=== PATIENT | male | born 1965 | race Caucasian/White ===

== ENCOUNTER → 2020-01-03 08:22 | Outpatient (BNVA) | payer BC, SELFPAY | PROVIDERS: Family Provider Family Medicine; PCP Nurse Practitioner Family; Visit Provider Urology | DX: N39.9 Disorder of urinary system, unspecified (principal); N40.1 Benign prostatic hyperplasia with lower urinary tract symptoms; R35.0 Frequency of micturition; N52.9 Male erectile dysfunction, unspecified | CPT/HCPCS: 81001 ==

== ENCOUNTER 2021-01-20 12:49 | Outpatient (CLI) | payer BC, SELFPAY ==
--- NOTE | 2021-01-20 12:57 | XRR_ITS ---
PROCEDURE INFORMATION: Exam: XR Chest Exam date and time: 01/20/2021 1:02 PM Age: 55 years old Clinical indication: Condition or disease; Lung condition and disease; Other: Asthmatic bronchitis; Cough; Additional info: Asthmatic bronchitis/cough TECHNIQUE: Imaging protocol: XR of the chest Views: 2 views. COMPARISON: CR Chest 1 [place] [id number] 05/13/2017 12:56 PM FINDINGS: Lungs: Unremarkable. No consolidation. Pleural spaces: Unremarkable. No pleural effusion. No pneumothorax. Heart/Mediastinum: Unremarkable. No cardiomegaly. Bones/joints: Unremarkable. XR/XR chest 2V* [id number] IMPRESSION: No acute findings.
== END 2021-01-20 12:50 | disposition home or self-care (01) ==
LOC: RAD 12:51
PROVIDERS: PCP Nurse Practitioner Family; Visit Provider Nurse Practitioner Family
DX: R05 Cough (principal); J45.909 Unspecified asthma, uncomplicated
CPT/HCPCS: 71046

== ENCOUNTER → 2021-05-19 08:36 | Outpatient (BNVA) | payer BC, SELFPAY | PROVIDERS: PCP Nurse Practitioner Family; Referring Provider Anesthesiology Pain Medicine; Visit Provider Orthopaedic Surgery | DX: M54.2 Cervicalgia (principal) | CPT/HCPCS: 72050 ==

== ENCOUNTER 2021-05-29 11:18 | Outpatient (CLI) | payer BC, SELFPAY ==
--- NOTE | 2021-05-29 11:25 | XR_ITS ---
WS: [id number] RIGHT SHOULDER: 2 VIEW(S) TECHNIQUE: Internal and external rotation. HISTORY: R SHOULDER PAIN COMPARISON: None available. Moderate narrowing of the AC joint. Small osteophytes with subchondral cystic changes along the joint line. Mild narrowing of the glenohumeral joint. No fractures. Visualized RIGHT lung is clear. XR/XR shoulder RT min 2V* [id number] IMPRESSION: 1. Moderate AC joint arthritis. 2. Very mild glenohumeral joint narrowing.
== END 2021-05-29 11:19 | disposition home or self-care (01) ==
PROVIDERS: PCP Nurse Practitioner Family; Visit Provider Nurse Practitioner Family
DX: M13.811 Other specified arthritis, right shoulder (principal)
CPT/HCPCS: 73030

== ENCOUNTER 2021-07-07 06:58 | Outpatient (CLI) | payer BC, SELFPAY ==
--- NOTE | 2021-07-07 07:15 | MR_ITS ---
WS: [id number] MRI RIGHT SHOULDER HISTORY: M75.01 - Adhesive capsulitis of right shoulder COMPARISON: 05/29/2021 TECHNIQUE: Multiplanar sequences of the shoulder joint are submitted. Moderate AC joint arthritis. Thickening of the capsule surrounding the AC joint with fluid along the articular surfaces and hypertrophic osteophytes encroaching upon the supraspinatus tendon and muscle. Moderate amount of fluid in the subacromial and subdeltoid bursa. 5 mm osteophyte from the distal un dersurface of the acromion with very mild encroachment upon the supraspinatus tendon superior to the humeral head. No os acromion. Biceps tendon is present at the bicipital groove. Mild narrowing of the glenohumeral joint. Loss of cartilage surrounding the humeral head and also the surface of the glenoid. No muscle atrophy or edema. Quality of this examination is limited by motion . There are no full-thickness rotator cuff tears. There is fraying and possible partial small tear in volving the distal articular surface of the supraspinatus. There is also mild tendinopathy in the dis justin 2 to 3 cm of the supraspinatus tendon. Increased fluid in the subscapularis recess. There is also increased T2 signal in the rotator cuff interval. Marked thickening and loss of the normal contour o f the coracohumeral ligament. Coracohumeral ligament measures 5 mm which is enlarged. Loss of the nor mal contour of the ligament and the ligament is very indistinct due to the edema. Abnormal signal in the superior labrum irregular signal consistent with a labral tear. MR/MR shoulder RT wo con* [id number] IMPRESSION: 1. Marked increased signal in the rotator cuff interval with thickening of the coracohumeral ligament and edema. Findings are consistent with adhesive capsul itis. 2. Moderate increase fluid in the subacromial/subdeltoid bursa and also extend ing into the subscapularis recess. 3. Moderate AC joint and glenohumeral joint osteoarthritis with joint space na rrowing and osteophytes. 4. No full-thickness rotator cuff tear is identified. Persistent motion throug hout the examination. Indeterminate but suspicious for very small articular maria luisa face tear of the distal supraspinatus.
== END 2021-07-07 06:59 | disposition home or self-care (01) ==
LOC: RADSHAW 07:01
PROVIDERS: PCP Nurse Practitioner Family; Visit Provider Specialist
DX: M75.01 Adhesive capsulitis of right shoulder (principal); M19.011 Primary osteoarthritis, right shoulder
CPT/HCPCS: 73221

== ENCOUNTER → 2021-12-10 08:04 | Outpatient (BNVA) | payer BC, SELFPAY | PROVIDERS: PCP Nurse Practitioner Family; Visit Provider Orthopaedic Surgery | DX: M48.02 Spinal stenosis, cervical region (principal) | CPT/HCPCS: 72050 ==

== ENCOUNTER 2022-01-07 07:07 | Outpatient (CLI) | payer BC, SELFPAY ==
--- NOTE | 2022-01-07 07:15 | MR_ITS ---
WS: [id number] MRI CERVICAL SPINE NONCONTRAST TECHNIQUE: Sagittal T1, T2 and STIR imaging. Axial T2, gradient, and fiesta imaging. CLINICAL INFORMATION: M48.02 - Spinal stenosis, cervical region COMPARISON: MRI January 24, 2019 FINDINGS: Straightening of the normal cervical lordosis. Cord signal is normal. Mild central canal stenosis in the mid cervical spine at C4-C6. C2-C3: Normal. C3-C4: Mild disc osteophytic ridging. Mild LEFT and no significant RIGHT foraminal narrowing. Mild fa cet arthropathy. Spinal canal is patent. C4-C5: Disc osteophyte complex with endplate ridging. Mild central canal stenosis. Tiny central disc osteophyte protrusion. Moderate LEFT and mild RIGHT bony foraminal narrowing. Mild facet arthropathy. C5-C6: Disc osteophyte complex with endplate ridging. Mild central canal stenosis with slight contact of the cervical cord. Central disc osteophyte protrusion. Moderate LEFT and mild RIGHT foraminal carla rowing. Moderate facet arthropathy. C6-C7: Disc osteophyte complex with endplate ridging. Mild LEFT foraminal narrowing. Moderate facet a rthropathy. Mild central canal stenosis. C7-T1: Slight anterolisthesis C7 on T1. Mild to moderate LEFT facet arthropathy. Spinal canal and for amen are patent. Mild annular bulging T1-T2 in the upper thoracic spine. Visualized brain stem structures: Normal. Prevertebral soft tissues: Normal. Overall no significant changes since January 24, 2019 MR/MR cervical spin wo con* [id number] IMPRESSION: 1. Straightening of the normal cervical lordosis. Cord signal is normal. 2. Mild central canal stenosis C4-C5 C5-C6 and C6-C7 due to mild disc bulging with tiny disc osteophyte protrusions and slight contact of the cervical cord. 3. Mild to moderate bony foraminal narrowing worse at LEFT C4-C5, bilateral C5 -C6 worse in the LEFT, LEFT C6-C7. 4. Mild to moderate facet arthropathy C4-C6 and LEFT C7-T1.
== END 2022-01-07 07:08 | disposition home or self-care (01) ==
LOC: RAD 07:10
PROVIDERS: PCP Nurse Practitioner Family; Visit Provider Orthopaedic Surgery
DX: M48.02 Spinal stenosis, cervical region (principal); M47.812 Spondylosis without myelopathy or radiculopathy, cervical region; M47.813 Spondylosis without myelopathy or radiculopathy, cervicothoracic region
CPT/HCPCS: 72141

== ENCOUNTER 2022-02-09 17:12 | Emergency (ER) | payer OTHER, BC, SELFPAY ==
[2022-02-09 17:18] VITALS: BP 142/87; PULSE 87; RESP 18; TEMP 36.8; O2SAT 97; BMI 33.4
--- NOTE | 2022-02-09 17:57 | XRR_ITS ---
PROCEDURE INFORMATION: Exam: XR Left Hip Exam date and time: 02/09/2022 6:02 PM Age: 56 years old Clinical indication: Hip pain; Left hip TECHNIQUE: Imaging protocol: XR Left hip. Views: 2 or 3 views hip with pelvis when performed. COMPARISON: CT abdomen pelvis w con* [id number] 08/05/2015 1:21 PM FINDINGS: Bones/joints: Unremarkable. No acute fracture. Soft tissues: Unremarkable. XR/XR hip LT 2-3V wo/w pel* [id number] IMPRESSION: No acute findings.
--- NOTE | 2022-02-09 17:57 | XRR_ITS ---
PROCEDURE INFORMATION: Exam: XR Lumbosacral Spine Exam date and time: 02/09/2022 6:02 PM Age: 56 years old Clinical indication: Low back pain TECHNIQUE: Imaging protocol: XR of the lumbosacral spine. Views: 2 or 3 views. COMPARISON: [facility] Lumbar Spine 5 views 07/15/2017 9:27 AM FINDINGS: Bones/joints: The vertebral body stature is intact. Minimal rightward lumbar curvature. Mild degenerative endplate changes at all lumbar levels. The facets are intact. Stable mild disc space narrowing at L5-S1. The other disc spaces are maintained. Soft tissues: Unremarkable. XR/XR lumbar spine 2-3V* [id number] IMPRESSION: 1. Stable mild degenerative changes. 2. No fracture or acute finding.
[2022-02-09 18:00] VITALS: BP 111/62; PULSE 78; RESP 14; O2SAT 95
--- NOTE | 2022-02-09 18:18 | W.ED.BACK ---
HPI - Back Pain/Injury General: Chief Complaint: Back Pain/Injury Stated Complaint: Fell at work, unable walk without pain Time Seen by Provider: 02/09/22 17:14 PFSH ED PFSH: Medical History BPH (benign prostatic hyperplasia) Erectile dysfunction Family History Grandmother Diabetes Father , at age 68 Cancer throat Social History Smoking and tobacco status: former smoker Alcohol intake: never Marital status: Current occupational status: employed History of recent travel: No Course Vital Signs: Vital signs: Vital Signs Temperature 98.2 F 02/09/22 17:18 Pulse Rate 78 02/09/22 18:00 Respiratory Rate 14 02/09/22 18:00 Blood Pressure 111/62 02/09/22 18:00 Pulse Oximetry 95 02/09/22 18:00 Discharge Plan Discharge Condition: Stable Prescriptions: No Action tramadol 50 mg tablet 50 mg PO TID PRN0RF gabapentin 800 mg tablet 800 mg PO TID 0RF omega-3 fatty acids [Fish Oil Concentrate] 1,000 mg capsule 1,000 mg PO DAILY 0RF vitamin B complex [B Complex-Vitamin B12] Tablet 1 tab PO DAILY 0RF cholecalciferol (vitamin D3) 25 mcg (1,000 unit) capsule 1,000 unit PO DAILY 0RF fenugreek seed extract 500 mg capsule PO DAILY 0RF multivitamin Tablet 1 tab PO DAILY 0RF tamsulosin 0.4 mg capsule 0.4 mg PO DAILY 0RF pantoprazole 40 mg tablet,delayed release (DR/EC) 40 mg PO DAILY 0RF acetaminophen-codeine 300-60 mg tablet 1 tab PO BID 0RF Referrals: Deborah Solis APN [Primary Care Provider] - Coding Level of Care Code ED Assistant Professor Of [employer] for Gabe Mckeon
--- NOTE | 2022-02-09 18:24 | ED_ITS ---
HPI - General Adult General: Chief complaint: Back Pain/Injury Stated complaint: Fell at work, unable walk without pain Time Seen by Provider: 02/09/22 17:14 History of Present Illness: Patient is a 56-year-old male with a history of chronic back pain presenting to the emergency room with complaints of acute left hip and lower back pain. 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 Patient ignored the pain at the time continue to work. Patient since then has been able to go home. Shortly after patient took a nap, he is complaining significant left hip and lower back pain. Patient has not been to bear weight because of pain. Patient denies any other injury or pain elsewhere. Onset: 4am Duration:ongoing Location:home Severity:moderate Associated symptoms: Deny chest pain, dyspnea, nausea, rash, palpitations or vomiting Review of Systems Const: Denies: fever(s) or chills Eyes: Denies: change in vision ENMT: Denies: mouth pain Card: Denies: chest pain or palpitations Resp: Denies: dyspnea or non-productive cough GI: Denies: abdominal pain, nausea, vomiting or diarrhea : Denies: dysuria Musc: Reports: back pain (+lower lumbar back pain) and extremity pain (+l hip pain) Skin/Breast: Denies: rash or new lesions Neuro: Denies: weakness in extremities Psych: Reports: other (Normal mood) Zane/Lymph: Denies: easy bruising PFSH ED PFSH: Medical History BPH (benign prostatic hyperplasia) Erectile dysfunction Family History Grandmother Diabetes Father , at age 68 Cancer throat Social History Smoking and tobacco status: former smoker Alcohol intake: never Marital status: Current occupational status: employed History of recent travel: No Physical Exam Const: COMMON NORMALS: alert HENMT: COMMON NORMALS: atraumatic HEAD & SCALP: atraumatic MOUTH: moist mucous membranes not abnormal Eye: COMMON NORMALS: EOMs intact bilaterally and conjunctivae normal CONJUNCTIVA: Yes conjunctivae normal Neck/C-Spine: COMMON NORMALS: full ROM and supple Resp: COMMON NORMALS: normal respiratory effort and clear to auscultation bilaterally AUSCULTATION: clear to auscultation bilaterally Cardio: COMMON NORMALS: regular rate RATE: regular rate GI: COMMON NORMALS: Soft to palpation and non-tender PALPATION: Yes Soft to palpation Extremity: COMMON NORMALS: full ROM OTHER: +Decreased rOM of the L hip intact, neurovascular exam of the LE intact Neuro: SENSORIUM/ORIENTATION: Yes alert MOTOR EXAM: No Abnormal motor stre ngth present and Other motor observations present (no focal motor deficits) Psych: COMMON NORMALS: speech normal SPEECH: Yes normal speech MOOD & AFFECT: Yes euthymic mood Procedures Nerve Block Nerve Block 1: Time out performed: Yes Local Anesthetic: lidocaine 1% and bupivacaine 0.5% Amount of anesthesia used (mL): 10 Nerve Blocks: other (+trigger point injections) Procedure Successful: Yes Patient Tolerated Procedure: well Complications: none Additional Comments: Risks of procedures in infection, nerve injury, hematoma, and bleeding discussed extensively with patient and alternatives of medical management discussed in detail. Patient elects for the procedure. Trigger point injections of the L glutes - one jaret were appreciated on palpitation. Surface cleaned extensively with isopropyl alcohol and chlorohexadine, sterile 7-0 gloves used. 40mg of kenalog mixed 5 cc of lidocaine 1% w/o epi and 5cc of 0.5% bupivcane w/ epi were injected into the sites of pain and pressure. Course Vital Signs: Vital signs: Vital Signs Temperature 98.2 F 02/09/22 17:18 Pulse Rate 72 02/09/22 20:33 Respiratory Rate 16 02/09/22 20:33 Blood Pressure 123/72 02/09/22 20:33 Pulse Oximetry 97 02/09/22 20:33 [facility] - General Adult Medical Decision Making Patient is a 56-year-old male states emergency with complaints of left hip and lower back pain. Patient has decreased range of motion of left hip due to pain. X-rays negative for any acute findings of injuries. She has multiple palpable knots around lateral and posterior muscles includes. Patient received multiple trigger point injections. Please refer to the procedure note. After the injection patient reports symptomatic improvement but still reports mild amount of pain in the L hip. I have given patient follow up with our protective services case worker to be seen by our outpatient Orthopedics for reassessment of symptoms today and possible outpatient MRI. Patient aware of a call from our protective services case worker to schedule for appointment(s) and verbalizes understanding of the importance of following up. I have instructed patient to follow-up to repeat x-ray in 1 week ensure if patient is still having pain. Patient received crutches to go home with. Rx: norflex, tylenol, lidocaine patch, and menthol PRN pain Disposition: Discharge. Patient counseled regarding diagnostic impression, treatment plan. Patient given ED strict return precautions to return for continuation, worsening, or development of new symptoms. Instructed to f/u w/ PCP regarding symptoms today. Patient verbalized understanding. Lab Data Radiology Impressions Hip/Pelvis X-Ray 02/09/22 17:57 IMPRESSION: No acute findings. Lumbar Spine X-Ray 02/09/22 17:57 IMPRESSION: 1. Stable mild degenerative changes. 2. No fracture or acute finding. Imaging Data Other Imaging: Radiologist's impression: [address] [address] XRay Report Signed Patient: Jose Figueroa Unit #: [id number] : 1965 Age/Sex: 56 / M ADM Date: 02/09/22 Loc: ER Room/Bed: Attending Dr: Ordering Provider/Ordering MD: Shaq Treadwell MD Date of Service: 02/09/22 Procedure(s): XR lumbar spine 2-3V* [id number] Accession Number(s): [id number] Report Number: [id number] PROCEDURE INFORMATION: Exam: XR Lumbosacral Spine Exam date and time: 02/09/2022 6:02 PM Age: 56 years old Clinical indication: Low back pain TECHNIQUE: Imaging protocol: XR of the lumbosacral spine. Views: 2 or 3 views. COMPARISON: [facility] Lumbar Spine 5 views 07/15/2017 9:27 AM FINDINGS: Bones/joints: The vertebral body stature is intact. Minimal rightward lumbar curvature. Mild degenerative endplate changes at all lumbar levels. The facets are intact. Stable mild disc space narrowing at L5-S1. The other disc spaces are maintained. Soft tissues: Unremarkable. XR/XR lumbar spine 2-3V* [id number] IMPRESSION: 1. Stable mild degenerative changes. 2. No fracture or acute finding.? ? Dictated By: Olivier Santizo Signed By: Olivier Santizo Signed Date/Time: 02/09/221921 DD/ [address] [address] XRay Report Signed Patient: Jose Figueroa Unit #: [id number] : 1965 Age/Sex: 56 / M ADM Date: 02/09/22 Loc: ER Room/Bed: Attending Dr: Ordering Provider/Ordering MD: Shaq Treadwell MD Date of Service: 02/09/22 Procedure(s): XR hip LT 2-3V wo/w pel* [id number] Accession Number(s): [id number] Report Number: [id number] PROCEDURE INFORMATION: Exam: XR Left Hip Exam date and time: 02/09/2022 6:02 PM Age: 56 years old Clinical indication: Hip pain; Left hip TECHNIQUE: Imaging protocol: XR Left hip. Views: 2 or 3 views hip with pelvis when performed. COMPARISON: CT abdomen pelvis w con* [id number] 08/05/2015 1:21 PM FINDINGS: Bones/joints: Unremarkable. No acute fracture. Soft tissues: Unremarkable. XR/XR hip LT 2-3V wo/w pel* [id number] IMPRESSION: No acute findings. ? Dictated By: Olivier Santizo Signed By: Olivier Santizo Signed Date/Time: 02/09/221922 DD/ 01 Discharge Plan Discharge Patient Disposition: Home Clinical Impression: Hip pain, Back pain Condition: Stable Prescriptions: New acetaminophen 500 mg tablet 500 mg PO Q6H PRN (Reason: pain) 5 Days Qty: 20 0RF lidocaine 5 % adhesive patch,medicated 1 patch topical DAILY PRN (Reason: pain) 30 Days Qty: 30 0RF Rx Instructions: leave on most painful area for up to 12 hrs orphenadrine citrate 100 mg tablet extended release 100 mg PO BID 10 Days Qty: 20 0RF Biofreeze (menthol) 5 % gel 1 ea topical BID PRN (Reason: pain) 10 Days Qty: 1 0RF No Action tramadol 50 mg tablet 50 mg PO TID PRN0RF gabapentin 800 mg tablet 800 mg PO TID 0RF omega-3 fatty acids [Fish Oil Concentrate] 1,000 mg capsule 1,000 mg PO DAILY 0RF vitamin B complex [B Complex-Vitamin B12] Tablet 1 tab PO DAILY 0RF cholecalciferol (vitamin D3) 25 mcg (1,000 unit) capsule 1,000 unit PO DAILY 0RF fenugreek seed extract 500 mg capsule PO DAILY 0RF multivitamin Tablet 1 tab PO DAILY 0RF tamsulosin 0.4 mg capsule 0.4 mg PO DAILY 0RF pantoprazole 40 mg tablet,delayed release (DR/EC) 40 mg PO DAILY 0RF acetaminophen-codeine 300-60 mg tablet 1 tab PO BID 0RF Discharge Orders: Discharge ED (Routine); Ordered 02/09/22 Ordered By: Shaq Treadwell Referrals: Deborah Solis APN [Primary Care Provider] - Discharge Diet: Advance as tolerated Discharge Activity: Increase activity as tolerated Patient Instructions: Back Pain (ED) Activity Restrictions/Additional Instructions: Please come back to the emergency room to have worsening back pain, if have any problem with urination and bowel movementm if you have any weakness in the legs, numbness in the legs, or if you have any new or concerning complaints. Coding Level of Care Code ED Pot Pusher for Gabe Fwd Exam Comprehensive
[2022-02-09 18:46] VITALS: RESP 14; O2SAT 95
[2022-02-09] MEDS: morphine 4 mg/mL SDV 1 mL IM (18:46)
[2022-02-09] MEDS: lidocaine 5% Patch 1 PATCH TOPICAL (18:46)
[2022-02-09] MEDS: acetaminophen 500 mg Tablet PO (18:46)
[2022-02-09 18:48] VITALS: BP 119/67; PULSE 69; RESP 14; O2SAT 95
[2022-02-09] MEDS: triamcinolone 40 mg/mL SDV IM (20:30)
[2022-02-09 20:32] VITALS: BP 123/72; PULSE 72; RESP 16; O2SAT 97
[2022-02-09 20:33] VITALS: BP 123/72; PULSE 72; RESP 16; O2SAT 97
--- NOTE | 2022-02-10 10:57 | DCPLANNER ---
Addendum entered by Chioma Hobbs 02/24/22 19:17: Patient had a follow up appointment scheduled with Dr. Mendez at ortho - patient did attend appointment. Addendum entered by Chioma Hobbs 02/11/22 07:51: Patient has a follow up appointment scheduled for 2021 at 9:[address] Mendez at ortho. Clinic will call patient with appointment information. Original Note: regional environmental manager had message to schedule a follow up appointment for patient with ortho. regional environmental manager sent patients information to the front staff at ortho. Patients information will be printed and reviewed. Clinic will call patient with appointment information.
== END 2022-02-09 20:35 | disposition home or self-care (01) ==
PROVIDERS: Emergency Provider Emergency Medicine; PCP Nurse Practitioner Family
DX: M25.552 Pain in left hip (principal); M54.50 Low back pain, unspecified
CPT/HCPCS: 72100; 73502; 96372; 99284; E0114; J2270; J3301; J3490

== ENCOUNTER 2022-09-21 16:56 | Outpatient (CLI) | payer BC, SELFPAY ==
--- NOTE | 2022-09-21 17:18 | XR_ITS ---
WS: [id number] XR foot LT min 3V* [id number] REASON FOR EXAM: FOOT PAIN FINDINGS: No fracture, periosteal reaction, or focal bone lesion of the left forefoot. Mild narrowing with subchondral sclerosis in the DIP and PIP joints of the third and fourth toes. Mild valgus deformity at the first MP joint with mild joint space narrowing, subchondral sclerosis, a nd small marginal osteophytosis. Similar arthropathy seen at the first tarsal metatarsal joint. No fracture or focal bone lesion of the midfoot or hindfoot. The joint spaces of the midfoot and hind foot are intact and relatively well-preserved. There is a small calcaneal Achilles enthesophyte. XR/XR foot LT min 3V* [id number] IMPRESSION: Mild osteoarthritis of the left forefoot as above. Small calcaneal enthesophyte as above.
--- NOTE | 2022-09-21 17:18 | XR_ITS ---
WS: [id number] XR foot RT min 3V* [id number] REASON FOR EXAM: LEFT FOOT PAIN FINDINGS: No fracture, periosteal reaction, or focal bone lesion in the right forefoot. Mild narrowing with subchondral sclerosis of the DIP and PIP joints in the third and fourth toes. Mild valgus deformity with mild joint space narrowing, subchondral sclerosis, and marginal osteophyto sis of the first MP joint. Similar arthropathic change in the first tarsal metatarsal joint. No fracture or focal lesion midfoot or hindfoot. Joint spaces of the hindfoot are intact and well preserved. XR/XR foot RT min 3V* [id number] IMPRESSION: Osteoarthritis right forefoot as above.
== END 2022-09-21 16:57 | disposition home or self-care (01) ==
PROVIDERS: PCP Nurse Practitioner Family; Visit Provider Nurse Practitioner Family
DX: M19.072 Primary osteoarthritis, left ankle and foot; M19.071 Primary osteoarthritis, right ankle and foot
CPT/HCPCS: 73630